=== PATIENT | male | born 2000 | race Caucasian/White ===

== ENCOUNTER → 2020-10-27 | Outpatient (CLI) | payer OTHER | LOC: KOH-I 08:56 | DX: R10.12 Left upper quadrant pain (principal); Z87.19 Personal history of other diseases of the digestive system | CPT/HCPCS: 76700 ==

== ENCOUNTER → 2020-11-15 | Day surgery (SDC) | payer OTHER | END | disposition home or self-care (01) | LOC: OR 06:58 | DX: K31.9 Disease of stomach and duodenum, unspecified (principal); R63.6 Underweight; Z87.19 Personal history of other diseases of the digestive system; Z68.1 Body mass index [BMI] 19.9 or less, adult; Z20.822 Contact with and (suspected) exposure to COVID-19; Z96.89 Presence of other specified functional implants | CPT/HCPCS: J2250; J2704; J3010; J7040 ==

== ENCOUNTER → 2020-11-17 | Outpatient (CLI) | payer OTHER ==
[2020-11-18 15:11] LABS: ENDOMYSIAL ANTIBODY IGA Negative (Negative); IMMUNOGLOBULIN A, QN, SERUM 234 mg/dL (90-386); T-TRANSGLUTAMINASE (TTG) IGA <2 U/mL (0-3)
== END ==
LOC: CT 10:38
PROVIDERS: Internal Medicine Gastroenterology
DX: R10.12 Left upper quadrant pain (principal)
CPT/HCPCS: 36415; 82784; Q9967

== ENCOUNTER → 2020-12-01 | Outpatient (CLI) | payer OTHER | LOC: HEART 5 10:58 | DX: R00.1 Bradycardia, unspecified (principal) | CPT/HCPCS: 93306 ==

== ENCOUNTER → 2020-12-08 | Outpatient (CLI) | payer OTHER | LOC: KOH-I 12-07 13:30 | DX: R22.1 Localized swelling, mass and lump, neck (principal) | CPT/HCPCS: 76536 ==

== ENCOUNTER → 2021-01-02 | Outpatient (CLI) | payer OTHER | LOC: HEART 5 14:20 | DX: R94.31 Abnormal electrocardiogram [ECG] [EKG] (principal); R00.1 Bradycardia, unspecified ==

== ENCOUNTER 2021-01-27 07:00 | Emergency (ER) | payer OTHER | END 2021-01-27 09:10 | disposition home or self-care (01) | LOC: ER1 07:00 | DX: S70.02XA Contusion of left hip, initial encounter (principal); W10.9XXA Fall (on) (from) unspecified stairs and steps, initial encounter; Y92.009 Unspecified place in unspecified non-institutional (private) residence as the place of occurrence of the external cause | CPT/HCPCS: 73502; 99283 ==